=== PATIENT | female | born 1980 | race Hispanic/Latino ===

== ENCOUNTER 2023-12-07 10:28 | Day surgery (SDC) | payer OTHER ==
[2023-12-07] MEDS ORDERED: hydrALAZINE 20 MG/ML VIAL SLOW IVP PRN (10:51)
== END 2023-12-07 12:50 | disposition home health service (06) ==
LOC: CSHLD/OP 10:28
PROVIDERS: ATTEND Family Medicine
DX: O47.1 False labor at or after 37 completed weeks of gestation (principal); O24.113 Pre-existing type 2 diabetes mellitus, in pregnancy, third trimester; O14.93 Unspecified pre-eclampsia, third trimester; O09.523 Supervision of elderly multigravida, third trimester; O09.623 Supervision of young multigravida, third trimester; Z3A.38 38 weeks gestation of pregnancy; Z79.4 Long term (current) use of insulin; Z79.84 Long term (current) use of oral hypoglycemic drugs; Z79.899 Other long term (current) drug therapy; Z98.890 Other specified postprocedural states
CPT/HCPCS: 99283

== ENCOUNTER 2023-12-12 16:52 | Inpatient (IN) | payer MEDICAID, OTHER ==
[~2023-12-12 16:52] MED LIST: Bupivacaine 0.25% HCL 30 ML VIAL ONE
[2023-12-12] MEDS ORDERED: hydrALAZINE 20 MG/ML VIAL SLOW IVP PRN ×2 (17:06→18:12)
[2023-12-12] MEDS ORDERED: Ondansetron PF 4 MG/2 ML Vial IVP PRN ×2 (18:12→20:46)
[2023-12-12] MEDS ORDERED: Promethazine HCl 25 MG/ML VIAL IM PRN ×2 (18:12→20:46)
[2023-12-12] MEDS ORDERED: Lidocaine 1% (PF) 30 ML VIAL SC PRN (18:12)
[2023-12-12] MEDS ORDERED: Methylergonovine 0.2 MG/ML VIAL IM PRN (18:19)
[2023-12-12] MEDS ORDERED: Diphenoxylate HCl/Atropine Tablet PO PRN (18:19)
[2023-12-12] MEDS ORDERED: Carboprost 250 MCG/ML AMP IM PRN (18:19)
[2023-12-12] MEDS ORDERED: Ibuprofen 800 MG TAB PO PRN (18:19)
[2023-12-12] MEDS ORDERED: Lorazepam 2 MG/ML VIAL SLOW IVP PRN (18:27)
[2023-12-12] MEDS ORDERED: Calcium Gluc 4.6 MEQ/10 ML (100 MG/ML) SLOW IVP PRN (18:27)
[2023-12-12] MEDS: Penicillin G Potassium 5 MILL.UNITS VIAL ONE (18:38)
[2023-12-12] MEDS: Penicillin G Potassium 5 MILL.UNITS in Sodium Chloride 0.9% 100 ML IVPB SCH (18:38)
[2023-12-12 18:45] LABS: #Basophils 0.03 10x3/uL (0.0-0.2); #Eosinophils 0.24 10x3/uL (0.0-0.5); #Monocytes 0.65 10x3/uL (0.0-1.1); #Neutrophils 4.56 10x3/uL (1.5-8.4); %Basophils 0.3 % (0.0-2.0); %Eosinophils 2.5 % (0.0-6.0); %Lymphocytes 41.4 % (18.0-47.0); %Monocytes 6.9 % (0.0-10.0); %Neutrophils 48.5 % (40.0-75.0); Hematocrit 34.9 % (34.9-44.5); Mean Corpuscular HGB CONC 34.4 g/dL (32.0-36.0); Mean Corpuscular Hemoglobin 28.9 pg (27.0-33.0); Mean Corpuscular Volume 84.1 fL (81.6-98.3); Mean Platelet Volume 11.3 fL (7.4-10.4); Platelet Count 218 10x3/uL (150-450); RBC Distribution Width 13.2 % (11.5-14.5); Red Blood Cell (RBC) Count 4.15 10x6/uL (3.90-5.03); White Blood Cell (WBC) Count 9.4 10x3/uL (3.5-10.5)
[2023-12-12] MEDS: Lactated Ringer's 1,000 ML IV SCH (18:45)
[2023-12-12 19:07] LABS: Creatinine, Urine 28.54 mg/dL (47-110); Protein, Urine Random Quant Less than 10 mg/dL (1-14)
[2023-12-12 19:31] VITALS: BMI 45.7
[2023-12-12 20:03] LABS: ALT (SGPT) 20 U/L (8-55); AST (SGOT) 27 U/L (5-34); Albumin 2.7 g/dL (3.5-5.0); Alkaline Phosphatase 213 U/L (40-110); Anion Gap 18 mmol/L (10-20); BUN (Urea Nitrogen) 9 mg/dL (7.0-18.7); Bilirubin, Total 0.3 mg/dL (0.2-1.2); Calc. Creatinine Clearance 235 mL/min (70-130); Calcium 9.6 mg/dL (7.8-10.44); Carbon Dioxide 16 mmol/L (22-29); Chloride 107 mmol/L (98-107); Estimated GFR 115; Globulin 3.8 g/dL (2.4-3.5); Glucose 80 mg/dL (70-105); Potassium 4.1 mmol/L (3.5-5.1); Protein, Total 6.5 g/dL (6.0-8.3); Sodium 137 mmol/L (136-145)
[2023-12-12] MEDS: fentaNYL/Ropivacaine Epidural 100 ML ONE (20:27)
[2023-12-12] MEDS ORDERED: Moisturizing Cream (Eucerin) 113 GM JAR TOP PRN (20:46)
[2023-12-12] MEDS ORDERED: Naloxone HCl 0.4 mg/ml Vial IVP PRN ×2 (20:46)
[2023-12-12] MEDS ORDERED: Acetaminophen 325 MG TAB PO PRN (20:46)
[2023-12-12] MEDS ORDERED: Lactated Ringer's 500 ML IV PRN (20:46)
[2023-12-12] MEDS ORDERED: diphenhydrAMINE 50 MG/ML VIAL IVP PRN (20:46)
[2023-12-12] MEDS ORDERED: ePHEDrine Sulfate 50 MG/10 ML VIAL SLOW IVP PRN (20:46)
[2023-12-12] MEDS ORDERED: fentaNYL 2 mcg/Ropivacaine 0.2% Epidural 100 ML CADD EPIDURAL SCH (21:00)
[2023-12-12] MEDS ORDERED: Communication Order-Pharmacy FS SCH (21:00)
[2023-12-12] MEDS ORDERED: Insulin Glargine 30 UNITS/0.3 ML VIAL SC SCH (21:00)
[2023-12-12] MEDS: Lantus 1000 UNITS/10 ML VIAL SC SCH (21:27)
[2023-12-12] MEDS: Penicillin G 2.5 MILL.units 2.5 MILL.UNITS in Premix 1 BAG IVPB SCH (22:19)
[2023-12-12 22:47] LABS: Syphilis Antibody Nonreactive (Nonreactive); Syphilis Antibody Index 0.03 S/CO (<1.00 Non-Reactive)
[2023-12-12 22:48] LABS: HBsAg Index 0.19 S/CO (0-0.99); Hep B Surf Ag - L&D Non-Reactive S/CO (NonReactive)
[2023-12-12] MEDS: Oxytocin 30 units/NS 500 ML 500 ML IV SCH (23:24)
[2023-12-12] MEDS ORDERED: Glucagon 1 MG/ML KIT IM PRN (23:40)
[2023-12-12] MEDS ORDERED: Dextrose 5% in Water 1,000 ML IV PRN (23:40)
[2023-12-12] MEDS ORDERED: Dextrose 50% Abboject 50 ML SYRINGE SLOW IVP PRN (23:40)
[2023-12-13] MEDS: Tranexamic Acid 1,000 MG/10 ML VIAL IVP PRN (04:18)
[2023-12-13] MEDS: Misoprostol 200 MCG TAB PR PRN (04:18)
[2023-12-13] MEDS: Oxytocin 30 units/NS 500 ML 500 ML IV SCH (04:49)
[2023-12-13] MEDS ORDERED: Bisacodyl 10 MG SUPP PR PRN (07:35)
[2023-12-13] MEDS ORDERED: Boostrix 0.5 ML (Tdap) VIAL (>/=7 yrs of age) IM ONE (07:35)
[2023-12-13] MEDS ORDERED: Oxytocin 30 units/NS 500 ML 500 ML IV SCH (07:35)
[2023-12-13] MEDS ORDERED: Preparation H Ointment 28 GM TUBE PR PRN (07:35)
[2023-12-13] MEDS ORDERED: Dextrose 5% in Water 1,000 ML IV PRN (07:35)
[2023-12-13] MEDS ORDERED: Milk Of Magnesia 30 ML UDCUP PO PRN (07:35)
[2023-12-13] MEDS ORDERED: Benzocaine-Menthol 82.5 ML CAN TOP PRN (07:35)
[2023-12-13] MEDS ORDERED: Insulin Lispro 100 UNIT/ML 10 ML VIAL SC PRN ×2 (07:35)
[2023-12-13] MEDS ORDERED: Lanolin Ointment 7 GM TUBE TOP PRN (07:35)
[2023-12-13] MEDS ORDERED: Dextrose 50% Abboject 50 ML SYRINGE SLOW IVP PRN (07:35)
[2023-12-13] MEDS ORDERED: hydrALAZINE 20 MG/ML VIAL SLOW IVP PRN (07:35)
[2023-12-13] MEDS ORDERED: Misoprostol 200 MCG TAB VAG PRN (07:35)
[2023-12-13] MEDS ORDERED: Ondansetron PF 4 MG/2 ML Vial IVP PRN (07:35)
[2023-12-13] MEDS ORDERED: diphenhydrAMINE 25 MG CAP PO PRN (07:35)
[2023-12-13] MEDS ORDERED: Methylergonovine 0.2 MG/ML VIAL IM PRN (07:35)
[2023-12-13] MEDS ORDERED: Glucagon 1 MG/ML KIT IM PRN (07:35)
[2023-12-13] MEDS ORDERED: metFORMIN 500 MG TAB PO SCH (08:00)
[2023-12-13] MEDS: Prenatal Vitamin 1 TAB PO SCH (08:05)
[2023-12-13] MEDS: metFORMIN 500 MG TAB PO SCH (08:05)
[2023-12-13] MEDS: Ferrous Sulfate 325 MG TAB PO SCH (08:05)
[2023-12-13] MEDS: Docusate 100 MG CAP PO SCH (08:06)
[2023-12-13] MEDS: Ibuprofen 800 MG TAB PO SCH (08:06)
[2023-12-13] MEDS ORDERED: [UNRECOGNIZED DRUG - REMARK] PO SCH (09:00)
[2023-12-13] MEDS: NIFEdipine XL 30 MG ER.TAB PO SCH (11:41)
[2023-12-14] MEDS: NIFEdipine XL 30 MG ER.TAB PO SCH ×2 (08:37→16:03)
[2023-12-15 05:34] VITALS: TEMP 97.9
[2023-12-15] MEDS: NIFEdipine XL 60 MG ER.TAB PO SCH (08:13)
[2023-12-15 11:19] VITALS: BP 132/67
== END 2023-12-15 10:25 | disposition home or self-care (01) | DRG 807 ==
LOC: CSHLD/OP 16:52 → CSHLD 18:26 → CSHPP 12-13 08:45
PROVIDERS: ADMIT Family Medicine; ATTEND Family Medicine
PROC: 10907ZC Drainage of Amniotic Fluid, Therapeutic from Products of Conception, Via Natural or Artificial Opening (ICD-10-PCS; principal; 2023-12-13)
PROC: 10E0XZZ Delivery of Products of Conception, External Approach (ICD-10-PCS; 2023-12-13)
PROC: 10H07YZ Insertion of Other Device into Products of Conception, Via Natural or Artificial Opening (ICD-10-PCS; 2023-12-13)
DX: O10.92 Unspecified pre-existing hypertension complicating childbirth (principal); Z37.0 Single live birth; Z3A.36 36 weeks gestation of pregnancy; Z79.84 Long term (current) use of oral hypoglycemic drugs; O09.523 Supervision of elderly multigravida, third trimester; O99.214 Obesity complicating childbirth; O24.425 Gestational diabetes mellitus in childbirth, controlled by oral hypoglycemic drugs; O35.8XX0 Maternal care for other (suspected) fetal abnormality and damage, not applicable or unspecified; Q07.8 Other specified congenital malformations of nervous system
CPT/HCPCS: 36416; 51702; 76815; 80053; 82570; 84156; 86780; 86850; 86900; 86901; 87340; 99285; J0665; J1815; J2540; J2590; J7120